=== PATIENT | female | born 1935 | race Caucasian/White ===

== ENCOUNTER 2021-05-26 09:07 | Inpatient (IN) ==
[2021-05-26] MEDS ORDERED: 0.9 % Sodium Chloride 500 ML IVC ONE (09:33)
[2021-05-26] MEDS ORDERED: Aspirin 81 MG TAB.CHEW PO ONE (09:33)
[2021-05-26] MEDS ORDERED: Nitroglycerin 1 INCH/GM PACKET TP ONE (10:07)
[2021-05-26 10:10] LABS: Basophils # 0.1 K/mcL (0.0-0.2); Basophils % 0.7 %; Eosinophils # 0.2 K/mcL (0.0-0.6); Eosinophils % 2.8 %; Hematocrit 41.3 % (35.3-44.9); Hemoglobin 13.2 g/dL (11.5-15.4); Immature Granulocytes % 0.3 % (0-4); Lymphocytes # 2.4 K/mcL (0.6-4.6); Mean Corpuscular Hemoglobin 29.7 pg (28.0-33.3); Mean Platelet Volume 11.5 fL (9.4-12.4); Monocytes # 0.4 K/mcL (0.0-1.3); Neutrophils # 4.5 K/mcL (1.6-8.9); Platelet Count 145 K/mcL (140-400); Red Blood Count 4.44 M/mcL (3.82-4.97); Red Cell Distribution Width 12.7 % (11.5-14.5); Segmented Neutrophils % 59.2 %; White Blood Count 7.6 K/mcL (4.3-11.1)
[2021-05-26 10:22] LABS: Prothrombin Time 11.5 Seconds (9.4-12.1)
[2021-05-26 10:25] LABS: Activated Partial Thrombo Time 30.4 Seconds (26.0-36.0)
[2021-05-26 10:44] LABS: Albumin 4.2 g/dL (3.5-5.7); Albumin/Globulin Ratio 1.4 (1.1-2.2); Bilirubin,Direct 0.1 mg/dL (0.0-0.2); Bilirubin,Indirect 0.3 mg/dL (0.0-1.0); Bilirubin,Total 0.4 mg/dL (0.3-1.0); Calcium 9.9 mg/dL (8.6-10.3); Globulin 2.9 g/dL (2.4-3.5); Potassium 4.3 mEq/L (3.5-5.1); Total Protein 7.1 g/dL (6.4-8.9); Troponin I 0.17 ng/mL (< 0.04)
[2021-05-26] MEDS ORDERED: *HR* Heparin 5,000 UNIT/ML VIAL IVP ONE (10:53)
[2021-05-26] MEDS ORDERED: *HR* Heparin 5,000 UNIT/ML VIAL IVP PRN ×2 (10:53)
[2021-05-26] MEDS ORDERED: Morphine Sulfate 2 MG/ML SYRINGE IVP ONE (10:58)
[2021-05-26] MEDS ORDERED: Heparin 25,000UNIT/250ML 1/2NS 25,000 UNIT/250 ML IV.SOLN IVC SCH (11:00)
[2021-05-26] MEDS ORDERED: Ondansetron 4 MG/2 ML VIAL IVP PRN (11:12)
[2021-05-26] MEDS ORDERED: Naloxone 0.4 MG/ML INJ IVP PRN (11:12)
[2021-05-26] MEDS ORDERED: Perflutren Lipid Microsphere 1.3 ML in 0.9 % Sodium Chloride 8.7 ML IVP PRN (11:14)
[2021-05-26] MEDS ORDERED: Dextrose Gel 15 GM/37.5 ML TUBE PO PRN ×2 (11:58)
[2021-05-26] MEDS ORDERED: D5% in Water 1,000 ML IVC PRN (11:58)
[2021-05-26] MEDS ORDERED: *HR* Dextrose 50 % in Water (Syg) 50 ML SYRINGE IVP PRN (11:58)
[2021-05-26 12:21] LABS: Bilirubin,Urine Negative (Negative); Blood,Urine Negative (Negative); Clarity,Urine Clear (Clear); Color,Urine Light-Yellow (Yellow); Glucose,Urine (UA) 50 mg/dL (Normal); Ketones,Urine Negative (Negative); Leukocyte Esterase,Urine Moderate (Negative); Mucus,Urine Few per lpf (None-Few); Nitrite,Urine Negative (Negative); PH,Urine 5.5 pH Units (5.0-8.0); Protein,Urine 50 mg/dL (Neg-Trace); RBC,Urine 0-3 per hpf (0-3); Specific Gravity,Urine 1.022 (1.010-1.025); Squamous Epithelial Cell,Urine Few per hpf (None-Few); Urobilinogen,Urine Normal (Normal); WBC,Urine 15-30 per hpf (0-3)
[2021-05-26] MEDS ORDERED: Heparin 1,000 UNITS/500 mL 500 ML ONE ×2 (15:11→16:16)
[2021-05-26] MEDS ORDERED: 0.9 % Sodium Chloride 2,000 ML ONE (15:11)
[2021-05-26] MEDS ORDERED: *HR* Heparin 10,000 UNIT/10 ML VIAL ONE (15:12)
[2021-05-26] MEDS ORDERED: ISOVUE-370 200 ML INFUS..BTL ONE ×2 (15:12→16:12)
[2021-05-26] MEDS ORDERED: Nitroglycerin 1,000 MCG/5 ML VIAL IV ONE (15:12)
[2021-05-26] MEDS ORDERED: *HR* FentaNYL (PF) 100 MCG/2 ML VIAL ONE (15:19)
[2021-05-26] MEDS ORDERED: *HR* Midazolam HCl 2 MG/2 ML VIAL ONE (15:20)
[2021-05-26] MEDS: Insulin LISPRO 300 UNITS/3 ML VIAL SUBQ SCH ×2 (15:38→21:21)
[2021-05-26] MEDS ORDERED: *HR* Bivalirudin 250 MG VIAL IVC ONE (16:02)
[2021-05-26] MEDS ORDERED: *HR* Ticagrelor 90 MG TABLET ONE (16:33)
[2021-05-26] MEDS ORDERED: Nitroglycerin 0.4 MG TAB.SUBL SL PRN (17:03)
[2021-05-26] MEDS ORDERED: 0.9 % Sodium Chloride 1,000 ML IVC SCH (17:15)
[2021-05-26] MEDS: Metoprolol XL (24 HR) Succ 25 MG TAB.ER.24H PO SCH (18:55)
[2021-05-26] MEDS ORDERED: *HR* Atropine Sulfate 1 MG/10 ML SYRINGE ONE (20:27)
[2021-05-26] MEDS: *HR* Ticagrelor 90 MG TABLET PO SCH (21:20)
[2021-05-27 04:28] LABS: Basophils # 0.1 K/mcL (0.0-0.2); Basophils % 0.5 %; Eosinophils % 0.4 %; Hematocrit 40.1 % (35.3-44.9); Hemoglobin 13.2 g/dL (11.5-15.4); Immature Granulocytes % 0.3 % (0-4); Lymphocytes % 21.6 %; Mean Corpuscular HGB Conc 32.9 g/dL (31.6-35.5); Mean Corpuscular Hemoglobin 29.7 pg (28.0-33.3); Mean Corpuscular Volume 90.1 fL (83.0-100.0); Mean Platelet Volume 11.8 fL (9.4-12.4); Monocytes # 0.6 K/mcL (0.0-1.3); Monocytes % 6.7 %; Neutrophils # 6.4 K/mcL (1.6-8.9); Platelet Count 154 K/mcL (140-400); Red Blood Count 4.45 M/mcL (3.82-4.97); Red Cell Distribution Width 12.7 % (11.5-14.5); Segmented Neutrophils % 70.5 %; White Blood Count 9.1 K/mcL (4.3-11.1)
[2021-05-27 04:43] LABS: Chol/HDL Ratio 5.2 (0-4.9)
[2021-05-27 04:44] LABS: Calcium 9.3 mg/dL (8.6-10.3); Magnesium 1.6 mg/dL (1.6-2.6); Phosphorous 3.5 mg/dL (2.7-4.5); Potassium 4.4 mEq/L (3.5-5.1)
[2021-05-27] MEDS: Insulin LISPRO 300 UNITS/3 ML VIAL SUBQ SCH ×4 (09:13→22:24)
[2021-05-27] MEDS: *HR* Ticagrelor 90 MG TABLET PO SCH ×2 (09:13→20:15)
[2021-05-27] MEDS: Metoprolol XL (24 HR) Succ 25 MG TAB.ER.24H PO SCH ×2 (09:13→12:54)
[2021-05-27] MEDS: Aspirin Enteric Coated 81 MG Tablet PO SCH (09:13)
[2021-05-27] MEDS ORDERED: lisinopriL 5 MG TABLET PO SCH (11:15)
[2021-05-27] MEDS ORDERED: *HR* OxyCODONE/APAP 5/325 TABLET PO PRN (14:17)
[2021-05-27] MEDS: traZODone 50 MG TABLET PO SCH (20:14)
[2021-05-27] MEDS: Fluticasone Propionate Nasal 50 MCG/SPRAY BOTTLE NS SCH (20:14)
[2021-05-28 03:25] LABS: Hemoglobin 12.2 g/dL (11.5-15.4); Mean Corpuscular Hemoglobin 29.6 pg (28.0-33.3); Mean Corpuscular Volume 89.8 fL (83.0-100.0); Platelet Count 146 K/mcL (140-400); Red Blood Count 4.12 M/mcL (3.82-4.97); White Blood Count 9.9 K/mcL (4.3-11.1)
[2021-05-28 03:42] LABS: Calcium 9.1 mg/dL (8.6-10.3); Magnesium 1.6 mg/dL (1.6-2.6); Potassium 4.4 mEq/L (3.5-5.1)
[2021-05-28] MEDS: Levothyroxine 25 MCG TABLET PO SCH (05:23)
[2021-05-28] MEDS: Magnesium Oxide 400 MG TABLET PO SCH (08:05)
[2021-05-28] MEDS: *HR* Ticagrelor 90 MG TABLET PO SCH ×2 (08:06→19:54)
[2021-05-28] MEDS: Metoprolol XL (24 HR) Succ 25 MG TAB.ER.24H PO SCH (08:06)
[2021-05-28] MEDS: Insulin LISPRO 300 UNITS/3 ML VIAL SUBQ SCH ×4 (08:06→19:54)
[2021-05-28] MEDS: allopurinoL 100 MG TABLET PO SCH (08:06)
[2021-05-28] MEDS: Aspirin Enteric Coated 81 MG Tablet PO SCH (08:06)
[2021-05-28] MEDS ORDERED: polyethylene glycoL 3350 17 GM POWD.PACK PO PRN (12:03)
[2021-05-28] MEDS ORDERED: Magnesium Sulfate 1 GM/102 ML PIGGYBACK IVPB ONE (13:06)
[2021-05-28] MEDS: traZODone 50 MG TABLET PO SCH (19:54)
[2021-05-28] MEDS: Fluticasone Propionate Nasal 50 MCG/SPRAY BOTTLE NS SCH (19:54)
[2021-05-29 04:22] LABS: Calcium 8.8 mg/dL (8.6-10.3); Potassium 4.1 mEq/L (3.5-5.1)
[2021-05-29] MEDS: Levothyroxine 25 MCG TABLET PO SCH (06:01)
[2021-05-29] MEDS: Insulin LISPRO 300 UNITS/3 ML VIAL SUBQ SCH ×4 (07:48→21:40)
[2021-05-29] MEDS ORDERED: 0.9 % Sodium Chloride 2,000 ML ONE (08:15)
[2021-05-29] MEDS ORDERED: ISOVUE-370 200 ML INFUS..BTL ONE (08:15)
[2021-05-29] MEDS ORDERED: Nitroglycerin 1,000 MCG/5 ML VIAL IV ONE (08:15)
[2021-05-29] MEDS ORDERED: Heparin 1,000 UNITS/500 mL 500 ML ONE (08:15)
[2021-05-29] MEDS ORDERED: *HR* Heparin 10,000 UNIT/10 ML VIAL ONE ×2 (08:15→08:48)
[2021-05-29] MEDS: Metoprolol XL (24 HR) Succ 25 MG TAB.ER.24H PO SCH (08:22)
[2021-05-29] MEDS: Magnesium Oxide 400 MG TABLET PO SCH (08:22)
[2021-05-29] MEDS: *HR* Ticagrelor 90 MG TABLET PO SCH ×2 (08:22→21:39)
[2021-05-29] MEDS: allopurinoL 100 MG TABLET PO SCH (08:22)
[2021-05-29] MEDS: Aspirin Enteric Coated 81 MG Tablet PO SCH (08:22)
[2021-05-29] MEDS ORDERED: *HR* Midazolam HCl 2 MG/2 ML VIAL ONE (08:26)
[2021-05-29] MEDS ORDERED: Tirofiban 12.5 MG/250ML 12.5 MG/250 ML BAG ONE (08:26)
[2021-05-29] MEDS ORDERED: *HR* FentaNYL (PF) 100 MCG/2 ML VIAL ONE (08:26)
[2021-05-29 13:21] LABS: Hematocrit 37.4 % (35.3-44.9); Hemoglobin 11.9 g/dL (11.5-15.4); Mean Corpuscular HGB Conc 31.8 g/dL (31.6-35.5); Mean Corpuscular Hemoglobin 29.2 pg (28.0-33.3); Mean Corpuscular Volume 91.9 fL (83.0-100.0); Mean Platelet Volume 12.3 fL (9.4-12.4); Platelet Count 153 K/mcL (140-400); Red Blood Count 4.07 M/mcL (3.82-4.97); Red Cell Distribution Width 12.9 % (11.5-14.5); White Blood Count 7.9 K/mcL (4.3-11.1)
[2021-05-29 13:29] LABS: INR 1.2; Prothrombin Time 12.9 Seconds (9.4-12.1)
[2021-05-29 13:32] LABS: Activated Partial Thrombo Time 30.5 Seconds (26.0-36.0)
[2021-05-29] MEDS: traZODone 50 MG TABLET PO SCH (21:39)
[2021-05-29] MEDS: Fluticasone Propionate Nasal 50 MCG/SPRAY BOTTLE NS SCH (21:39)
[2021-05-30 03:07] LABS: Hematocrit 36.2 % (35.3-44.9); Hemoglobin 11.9 g/dL (11.5-15.4); Mean Corpuscular HGB Conc 32.9 g/dL (31.6-35.5); Mean Corpuscular Hemoglobin 30.2 pg (28.0-33.3); Mean Corpuscular Volume 91.9 fL (83.0-100.0); Mean Platelet Volume 12.2 fL (9.4-12.4); Platelet Count 140 K/mcL (140-400); Red Blood Count 3.94 M/mcL (3.82-4.97); Red Cell Distribution Width 12.9 % (11.5-14.5); White Blood Count 8.2 K/mcL (4.3-11.1)
[2021-05-30] MEDS: Levothyroxine 25 MCG TABLET PO SCH (05:35)
[2021-05-30] MEDS: *HR* Ticagrelor 90 MG TABLET PO SCH ×2 (09:23→20:02)
[2021-05-30] MEDS: Aspirin Enteric Coated 81 MG Tablet PO SCH (09:23)
[2021-05-30] MEDS: Metoprolol XL (24 HR) Succ 25 MG TAB.ER.24H PO SCH (09:23)
[2021-05-30] MEDS: allopurinoL 100 MG TABLET PO SCH (09:23)
[2021-05-30] MEDS: Magnesium Oxide 400 MG TABLET PO SCH (09:24)
[2021-05-30] MEDS: Insulin LISPRO 300 UNITS/3 ML VIAL SUBQ SCH ×4 (09:24→20:07)
[2021-05-30] MEDS: 0.9 % Sodium Chloride 1,000 ML IVC SCH ×2 (09:25→18:13)
[2021-05-30 19:28] VITALS: PULSE 89
[2021-05-30] MEDS: traZODone 50 MG TABLET PO SCH (20:02)
[2021-05-30] MEDS: Fluticasone Propionate Nasal 50 MCG/SPRAY BOTTLE NS SCH (20:08)
[2021-05-31 04:25] LABS: Calcium 8.8 mg/dL (8.6-10.3); Potassium 3.7 mEq/L (3.5-5.1)
[2021-05-31] MEDS: Levothyroxine 25 MCG TABLET PO SCH (05:06)
[2021-05-31 07:01] VITALS: BP 138/83; TEMP 99.3; O2SAT 95
[2021-05-31] MEDS: Aspirin Enteric Coated 81 MG Tablet PO SCH (08:06)
[2021-05-31] MEDS: Insulin LISPRO 300 UNITS/3 ML VIAL SUBQ SCH (08:06)
[2021-05-31] MEDS: Magnesium Oxide 400 MG TABLET PO SCH (08:06)
[2021-05-31] MEDS: Metoprolol XL (24 HR) Succ 25 MG TAB.ER.24H PO SCH (08:06)
[2021-05-31] MEDS: *HR* Ticagrelor 90 MG TABLET PO SCH (08:06)
[2021-05-31] MEDS: allopurinoL 100 MG TABLET PO SCH (08:07)
== END 2021-05-31 11:28 | disposition home or self-care (01) | DRG 246 ==
LOC: EMEROOARM 09:07 → 3BNU 09:07 → SUATTDRO 13:20 → 2NNU 15:27 → 2ANU 05-27 19:08
PROVIDERS: ADMIT Student in an Organized Health Care Education/Training Program; ATTEND Internal Medicine

== ENCOUNTER 2021-12-29 07:46 | Observation (INO) ==
[2021-12-29] MEDS ORDERED: Aspirin 325 MG TABLET PO ONE (08:13)
[2021-12-29 08:27] LABS: White Blood Count 6.1 K/mcL (4.3-11.1)
[2021-12-29 08:28] LABS: Basophils # 0.1 K/mcL (0.0-0.2); Basophils % 0.8 %; Eosinophils # 0.2 K/mcL (0.0-0.6); Eosinophils % 3.1 %; Hematocrit 39.7 % (35.3-44.9); Hemoglobin 12.7 g/dL (11.5-15.4); Immature Granulocytes % 0.2 % (0-4); Lymphocytes # 1.7 K/mcL (0.6-4.6); Lymphocytes % 27.8 %; Mean Corpuscular Hemoglobin 30.3 pg (28.0-33.3); Mean Corpuscular Volume 94.7 fL (83.0-100.0); Mean Platelet Volume 11.2 fL (9.4-12.4); Monocytes # 0.3 K/mcL (0.0-1.3); Monocytes % 4.9 %; Neutrophils # 3.9 K/mcL (1.6-8.9); Platelet Count 168 K/mcL (140-400); Red Blood Count 4.19 M/mcL (3.82-4.97); Segmented Neutrophils % 63.2 %
[2021-12-29 08:37] LABS: Prothrombin Time 10.9 Seconds (9.4-12.1)
[2021-12-29 08:39] LABS: Activated Partial Thrombo Time 31.7 Seconds (26.0-36.0)
[2021-12-29 08:50] LABS: Alanine Aminotransferase 8 Units/L (7-52); Albumin 4.3 g/dL (3.5-5.7); Albumin/Globulin Ratio 1.6 (1.1-2.2); Alkaline Phosphatase 60 Units/L (34-104); Aspartate Amino Transferase 11 Units/L (13-39); BUN/Creatinine Ratio 21 (6-26); Bilirubin,Direct 0.1 mg/dL (0.0-0.2); Bilirubin,Indirect 0.4 mg/dL (0.0-1.0); Bilirubin,Total 0.5 mg/dL (0.3-1.0); Blood Urea Nitrogen 28 mg/dL (8-23); Calcium 10.3 mg/dL (8.6-10.3); Carbon Dioxide 22 mEq/L (23-29); Chloride 105 mEq/L (98-107); Globulin 2.7 g/dL (2.4-3.5); Glucose 144 mg/dL (70-105); Lipase 16 Units/L (11-82); Osmolality,Calculated 290 (280-300); Sodium 136 mEq/L (136-145); Troponin I < 0.03 ng/mL (< 0.04)
[2021-12-29] MEDS: Nitroglycerin 0.4 MG TAB.SUBL SL PRN ×2 (09:02→09:15)
[2021-12-29] MEDS ORDERED: GI Cocktail 40 ML EACH PO ONE (09:35)
[2021-12-29] MEDS ORDERED: *HR* FentaNYL (PF) 100 MCG/2 ML VIAL IVP ONE (10:00)
[2021-12-29] MEDS ORDERED: Naloxone 0.4 MG/ML INJ IVP PRN (11:16)
[2021-12-29] MEDS ORDERED: D5% in Water 1,000 ML IVC PRN (12:39)
[2021-12-29] MEDS ORDERED: Dextrose Gel 15 GM/37.5 ML TUBE PO PRN ×2 (12:39)
[2021-12-29] MEDS ORDERED: *HR* Dextrose 50 % in Water (Syg) 50 ML SYRINGE IVP PRN (12:39)
[2021-12-29] MEDS ORDERED: Morphine Sulfate 2 MG/ML SYRINGE IVP ONE (12:49)
[2021-12-29] MEDS ORDERED: Lidocaine -MPF 2% 5 ML VIAL ONE (13:18)
[2021-12-29] MEDS ORDERED: *HR* Propofol 200 MG/20 ML VIAL IVP ONE (13:18)
[2021-12-29] MEDS: Insulin LISPRO 300 UNITS/3 ML VIAL SUBQ SCH ×2 (14:51→17:16)
[2021-12-29] MEDS: Pantoprazole 40 MG VIAL IVP SCH (17:40)
[2021-12-29] MEDS: Sucralfate 1 GM TABLET PO SCH ×2 (17:40→21:24)
[2021-12-29] MEDS: *HR* Heparin 5,000 UNIT/ML VIAL SQ SCH (17:41)
[2021-12-29] MEDS: *HR* Ticagrelor 90 MG TABLET PO SCH (20:14)
[2021-12-30 03:47] LABS: Calcium 9.7 mg/dL (8.6-10.3); Magnesium 1.4 mg/dL (1.6-2.6); Phosphorous 3.1 mg/dL (2.7-4.5); Potassium 4.1 mEq/L (3.5-5.1)
[2021-12-30 04:50] VITALS: TEMP 98.2
[2021-12-30] MEDS: Pantoprazole 40 MG VIAL IVP SCH (05:38)
[2021-12-30] MEDS: *HR* Heparin 5,000 UNIT/ML VIAL SQ SCH (05:39)
[2021-12-30 07:29] VITALS: BP 156/72; PULSE 84; O2SAT 94
[2021-12-30] MEDS: Insulin LISPRO 300 UNITS/3 ML VIAL SUBQ SCH (07:53)
[2021-12-30] MEDS: *HR* Ticagrelor 90 MG TABLET PO SCH (07:53)
[2021-12-30] MEDS: Sucralfate 1 GM TABLET PO SCH (07:53)
[2021-12-30] MEDS ORDERED: Aspirin 81 MG TAB.CHEW PO SCH (09:00)
[2021-12-30 16:00] LABS: Estimated Average Glucose 128 mg/dl; Hemoglobin A1C 6.1 %
== END 2021-12-30 09:09 | disposition home or self-care (01) ==
LOC: 3ANU 07:46 → EMEROOARM 07:46 → SUATTDRO 11:16 → 3ANU 11:38
PROVIDERS: ADMIT Internal Medicine; ATTEND Internal Medicine